=== PATIENT | female | born 1960 | race Caucasian/White ===

== ENCOUNTER 2018-02-17 08:12 | Emergency (ER) | payer BC, SELFPAY ==
[2018-02-17 08:21] VITALS: BP 131/75; PULSE 76; RESP 16; TEMP 36.5; O2SAT 100
--- NOTE | 2018-02-17 08:45 | ED.GENADUL ---
Disposition Clinical Impression: Left otitis media Disposition: HOME Condition: Good Instructions: Otitis Media (ED) Additional Instructions: Follow-up with Dr. Parson in clinic for recheck in 2-4 weeks time. Take Augmentin as prescribed. I do recommend live culture yogurt and/or probiotic as we discussed. Return for any acute concerns. Prescriptions: Amoxicillin 875/Clav. 125 [Augmentin 875-125 Tablet] 1 each PO BID 10 Days #20 tab Medical Decision Making - Medical Decision Making 57-year-old female with clinical history and exam consistent with ruptured acute left otitis media. She does also have fairly impressive cerumen buildup in both ears and will require Cerumenex once she is over this initial infection. I discussed this with her. Will treat with a course of Augmentin. She should follow-up with primary care within 2-4 weeks time for repeat exam and probable initiation of Cerumenex or ear irrigation. Stable for discharge home at this time History of Present Illness - General Chief complaint: EarProblem Stated complaint: EAR PAIN Time Seen by Provider: 02/17/18 08:45 Source: patient, RN notes reviewed Mode of arrival: ambulatory Limitations: no limitations - History of Present Illness Initial comments: 7-year-old female states that she had antecedent upper respiratory illness with mild cough and congestion over 4-5 days time while in [place], then flew home and during the flight had increased bilateral left greater than right ear pain. Over the past few days her respiratory symptoms have improved, she is how had 2 days of worsening, moderate, left ear pain that is nonradiating. She felt increased pressure and pain last night and then had relief with some yellow drainage. She does have a history of cerumen buildup in both ears previously. She does not have a history of ear pain such as that described - Related Data Amoxicillin 875/Clav. 125 [Augmentin 875-125 Tablet] 1 each PO BID 10 Days #20 tab 02/17/18 Aspirin [Aspir 81] 81 mg PO DAILY 02/17/18 Allergies Allergy/AdvReac Type Severity Reaction Status Date / Time No Known Allergies Allergy Unverified 02/17/18 08:25 Review of Systems Other: 8 systems reviewed, otherwise negative Past Medical History - Past Medical History See nursing notes General Exam - General Limitations: no limitations General appearance: alert, in no apparent distress - Head Head exam: Present: atraumatic, normocephalic - Eye Eye exam: Present: normal apperance, PERRL, EOMI - ENT ENT exam: Present: other (Right ear with cerumen impaction, left ear with cerumen and draining purulent fluid coming not appreciate fully the tympanic membrane.). Absent: TM's normal bilaterally - Neck Neck exam: Present: normal inspection. Absent: tenderness, lymphadenopathy - Respiratory Respiratory exam: Present: normal lung sounds bilaterally. Absent: respiratory distress - Cardiovascular Cardiovascular Exam: Present: regular rate, normal rhythm - GI/Abdominal GI/Abdominal exam: Present: soft. Absent: distended - Back Exam Back exam: Present: normal inspection - Neurological Exam Neurological exam: Present: alert, oriented X3 - Psychiatric Psychiatric exam: Present: normal affect, normal mood - Skin Skin exam: Present: warm, dry, intact Course Vital Signs - 24 hr 02/17/ 08:21 Temperature 36.5 C Pulse 76 Respiratory 16 Rate Blood Pressure 131/75 Pulse Oximetry 100
== END 2018-02-17 08:54 | disposition home or self-care (01) ==
LOC: ER 05-08 13:08
PROVIDERS: Emergency Provider Emergency Medicine; PCP Family Medicine
DX: H66.92 Otitis media, unspecified, left ear (principal); H61.23 Impacted cerumen, bilateral
CPT/HCPCS: 99283

== ENCOUNTER 2021-06-24 18:21 | Emergency (ER) | payer BC, SELFPAY ==
[2021-06-24 18:37] VITALS: BP 155/83; PULSE 103; RESP 16; TEMP 36.6; O2SAT 100
--- NOTE | 2021-06-24 18:57 | ED.GENADUL_ITS ---
Discharge Plan Disposition Patient Disposition: HOME Condition: Stable Discharge Details Clinical Impression: Rabies exposure Primary Care Provider: Atilio Houston ED Provider: Jonna Kinney Home Meds and New Rx's Prescriptions: Continued calcium-vitamin D3-vitamin K [Viactiv] 650 mg-12.5 mcg-40 mcg tablet,chewable 1 tab PO DAILY RF: 0 lorazepam 0.5 mg tablet 0.5 - 1 mg PO DAILY PRN (Reason: anxiety) Qty: 10 RF: 0 aspirin 81 mg Tablet,Chewable 81 mg PO DAILY RF: 0 Discharge Instructions Instructions: Rabies Vaccine (By injection), Rabies Immune Globulin (By injection), Rabies (ED) Additional Instructions: present to outpatient infusion clinic on June 27, and for postexposure vaccination series. Referrals: Atilio Houston MD [Primary Care Provider] - Medical Decision Making patient with unknown bat contact with bat in room where she was sleeping. qualifies for post exposure prophylaxis. given rabies vaccine and immune globulin HPI General Mode of arrival: ambulatory . Date/Time Provider Initiated Documentation: 06/24/21 18:24 . Limitations to Documentation: no limitations . Information obtained by: patient . HPI Narrative: patient reports that was woken this morning to find a bat in her room. it is unknown if she came in contact with it but reports a sore spot on her scalp and feels it may have struck her and that's why she woke up. she has been unable to locate the bat and was advised to present for postexposure vaccination for rabies. she has never received rabies vaccination Related Data Home Medications Medication Instructions Recorded Confirmed calcium 650 mg-vitamin D3 12.5 1 tab PO DAILY tab 06/04/18 06/24/21 mcg-vitamin K 40 mcg chewable tablet lorazepam 0.5 mg tablet 0.5 - 1 mg PO DAILY PRN #10 tab 01/19/21 06/24/21 aspirin 81 mg PO DAILY 06/24/21 06/24/21 Previous Rx's Medication Instructions Recorded lorazepam 0.5 mg tablet 0.5 - 1 mg PO DAILY PRN #10 tab 01/19/21 Allergies Allergy/AdvReac Type Severity Reaction Status Date / Time Influenza Virus Vaccines Allergy Intermediate Tingling Verified 06/24/21 18:41 in her back General Stated Complaint: AnimalBite RUBIO: 4 Review of Systems All systems reviewed & are unremarkable except as noted in HPI and below PFSH All Active Problems (Updated 06/24/21 @ 19:29 by Jonna Kinney NP) Rabies exposure (Acute) Left eye symptoms (Acute) Mucous polyp of cervix (Acute) Surgical History (Updated 04/25/18 @ 14:36 by [employer] [place]) Augmentation mammoplasty (~2002) Family History (Updated 06/18/19 @ 09:32 by León Arndt) Mother Stroke Father Diabetes Essential hypertension Heart disease Hyperlipidemia Sister No problems noted. Maternal Grandfather , AGE 81 Heart disease Paternal Grandfather , AGE 83 Heart disease Stroke Maternal Grandmother , AGE 99 Stroke Breast cancer Paternal Grandmother , AGE 73 Vulva cancer Sister No problems noted. Sister No problems noted. Sister No problems noted. Son Down syndrome Daughter No problems noted. Daughter No problems noted. Social History (Updated 10/29/20 @ 08:33 by Brooklyn Smith) Smoking/Tobacco Use Status: Never Second Hand Exposure: No Smoking risk assessment performed?: Yes Alcohol Intake: current Alcohol type: wine Drug use: Never Substance use type: does not use Counseling given: No Counseling provided: none Caregiver/Support person: No Household members: spouse and children Housing: house Communication Needs: None Do you need help understanding health information?: Rarely Pets and animals: No Sexually active: Yes Do you think of yourself as: straight/heterosexual Current gender identity: female What is your relationship status?: How often do you talk on the phone with friends or family?: three or more times per week How often do you get together with friends or relatives?: three or more times per week How often do you attend pentecostal or taoism services?: decline to answer Do you belong to any clubs or organized social groups?: no Panel score (0-1 are the most socially isolated patients): 2 What type of physical activity do you participate in: running and yoga Duration: 45-60 minutes/day Frequency: 5-6 times per week Brina/Baptism: No preference Special brina needs: No Seatbelt use: always Drive intox or ride w/intox 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 Do you feel safe in your relationship?: Yes Exam Const General: cooperative, healthy appearing and comfortable Nutritional Appearance: thin Orientation: alert, awake and oriented x3 HENMT Head: normal to inspection, normocephalic, atraumatic and other (no lesion noted) Mouth: oral mucosae normal Resp Effort & Inspection: normal respiratory effort Auscultation: clear to auscultation bilaterally Cardio Rate: regular rate Rhythm: regular rhythm Skin General skin exam: no rashes or lesions noted Neuro General: patient alert, patient awake and patient oriented x3 Course Vital Signs Vital signs: Vital Signs Temperature 36.6 C 06/24/21 18:37 Pulse 103 H 06/24/21 18:37 Respiratory Rate 16 06/24/21 18:37 Blood Pressure 155/83 H 06/24/21 18:37 Pulse Oximetry 100 06/24/21 18:37 Temperature 36.6 C 06/24/21 18:37 Temperature Source Skin 06/24/21 18:37 Pulse 103 H 06/24/21 18:37 Respiratory Rate 16 06/24/21 18:37 Respiratory Effort Non-Labored 06/24/21 18:37 Blood Pressure 155/83 H 06/24/21 18:37 Blood Pressure Position Sitting 06/24/21 18:37 Pulse Oximetry 100 06/24/21 18:37 Pain Level 1 06/24/21 18:37
[2021-06-24] MEDS: Rabies Immune Globulin 300 UNIT/ML VIAL 1133.98 UNIT IM (19:36)
== END 2021-06-24 19:45 | disposition home or self-care (01) ==
PROVIDERS: Emergency Provider Nurse Practitioner Acute Care; PCP Family Medicine
DX: Z20.3 Contact with and (suspected) exposure to rabies (principal)
CPT/HCPCS: 90471; 96372; 99284; 90675; 99283

== ENCOUNTER 2021-06-25 14:27 | Emergency (ER) | payer SELFPAY ==
[2021-06-25 15:30] VITALS: BP 132/89; PULSE 74; RESP 18; TEMP 36.8; O2SAT 99
--- NOTE | 2021-06-25 15:51 | ED.GENADUL_ITS ---
Discharge Plan Disposition Patient Disposition: HOME Condition: Stable Discharge Details Clinical Impression: Rabies exposure Primary Care Provider: Atilio Houston ED Provider: Beatriz Small Home Meds and New Rx's Prescriptions: Continued calcium-vitamin D3-vitamin K [Viactiv] 650 mg-12.5 mcg-40 mcg tablet,chewable 1 tab PO DAILY RF: 0 lorazepam 0.5 mg tablet 0.5 - 1 mg PO DAILY PRN (Reason: anxiety) Qty: 10 RF: 0 aspirin 81 mg Tablet,Chewable 81 mg PO DAILY RF: 0 Discharge Instructions Additional Instructions: please go to infusion clinic on day 3, 7, and 14 for rabies vaccine please return with flu like syndrome, signs of allergic reaction, or with new or worsening complaints Referrals: Atilio Houston MD [Primary Care Provider] - Discharge Data Discharge Date/Time-TO BE ENTERED AT DEPARTURE: 06/25/21 16:33 Medical Decision Making I discussed this patient with [facility] Annabel Hood and the [place] [facility] and your recommendation is to initiate half dose of repeat immunoglobulin, benefit outweighs risk and repeat rabies vaccination therefore outpatient rabies was reordered at day 037 and 14 Patient discharged home feeling well, asymptomatic, with stable vitals need to return in 3 days for repeat rabies vaccination, immunization order sheet was faxed to the infusion center HPI General Mode of arrival: ambulatory . Date/Time Provider Initiated Documentation: 06/25/21 14:33 . Limitations to Documentation: no limitations . Information obtained by: patient . HPI Narrative: This 60-year-old female presents with report of waking up with at in the room 48 hours ago. She presented to the emergency room and received the rabies immunoglobulin and vaccine. She reportedly received these in her glucose and after consulting with rabies hotline and CBC it is recommended that these be administered in any intramuscular location of 5 chronically. Reportedly concerns but they are neutralized and area secondary to large size of the muscle reportedly. Patient denies any current fever, chills or flulike syndrome. Related Data Home Medications Medication Instructions Recorded Confirmed calcium 650 mg-vitamin D3 12.5 1 tab PO DAILY tab 06/04/18 06/25/21 mcg-vitamin K 40 mcg chewable tablet lorazepam 0.5 mg tablet 0.5 - 1 mg PO DAILY PRN #10 tab 07/13/21 12/17/21 aspirin 81 mg PO DAILY 06/24/21 06/25/21 Previous Rx's Medication Instructions Recorded lorazepam 0.5 mg tablet 0.5 - 1 mg PO DAILY PRN #10 tab 01/19/21 Allergies Allergy/AdvReac Type Severity Reaction Status Date / Time Influenza Virus Vaccines Allergy Intermediate Tingling Verified 06/25/21 15:32 in her back General Stated Complaint: Recheck RUBIO: 4 Review of Systems All systems reviewed & are unremarkable except as noted in HPI and below PFSH All Active Problems (Updated 06/25/21 @ 15:58 by KAYE Haynes) Rabies exposure (Acute) Left eye symptoms (Acute) Mucous polyp of cervix (Acute) Surgical History (Updated 04/25/18 @ 14:36 by [facility] [place]) Augmentation mammoplasty (~2002) Family History (Updated 06/18/19 @ 09:32 by León Arndt) Mother Stroke Father Diabetes Essential hypertension Heart disease Hyperlipidemia Sister No problems noted. Maternal Grandfather , AGE 81 Heart disease Paternal Grandfather , AGE 83 Heart disease Stroke Maternal Grandmother , AGE 99 Stroke Breast cancer Paternal Grandmother , AGE 73 Vulva cancer Sister No problems noted. Sister No problems noted. Sister No problems noted. Son Down syndrome Daughter No problems noted. Daughter No problems noted. Social History (Updated 10/29/20 @ 08:33 by Brooklyn Smith) Smoking/Tobacco Use Status: Never Second Hand Exposure: No Smoking risk assessment performed?: Yes Alcohol Intake: current Alcohol type: wine Drug use: Never Substance use type: does not use Counseling given: No Counseling provided: none Caregiver/Support person: No Household members: spouse and children Housing: house Communication Needs: None Do you need help understanding health information?: Rarely Pets and animals: No Sexually active: Yes Do you think of yourself as: straight/heterosexual Current gender identity: female What is your relationship status?: How often do you talk on the phone with friends or family?: three or more times per week How often do you get together with friends or relatives?: three or more times per week How often do you attend restorationist or zoroastrian services?: decline to answer Do you belong to any clubs or organized social groups?: no Panel score (0-1 are the most socially isolated patients): 2 What type of physical activity do you participate in: running and yoga Duration: 45-60 minutes/day Frequency: 5-6 times per week Brina/Restoration: No preference Special brina needs: No Seatbelt use: always Drive intox or ride w/intox 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 Do you feel safe in your relationship?: Yes Exam Const General: cooperative and no acute distress Neuro General: patient alert Course Vital Signs Vital signs: Vital Signs Temperature 36.8 C 06/25/21 15:30 Pulse 74 06/25/21 15:30 Respiratory Rate 18 06/25/21 15:30 Blood Pressure 132/89 06/25/21 15:30 Pulse Oximetry 99 06/25/21 15:30 Temperature 36.8 C 06/25/21 15:30 Temperature Source Skin 06/25/21 15:30 Pulse 74 06/25/21 15:30 Respiratory Rate 18 06/25/21 15:30 Respiratory Effort Non-Labored 06/25/21 15:32 Blood Pressure 132/89 06/25/21 15:30 Pulse Oximetry 99 06/25/21 15:30 Pain Level 1 06/25/21 15:30
[2021-06-25] MEDS: Rabies Immune Globulin 300 UNIT/ML VIAL 566.98 UNIT IM (16:17)
--- NOTE | 2021-06-28 08:58 | NUR.NOTE ---
Nursing Note: Faxed to Infusion Room the new set of Rabies Vaccine Orders done today by Niki Ma NP. Brooklyn Marc
== END 2021-06-25 16:33 | disposition home or self-care (01) ==
PROVIDERS: Emergency Provider Physician Assistant; PCP Family Medicine
DX: Z20.3 Contact with and (suspected) exposure to rabies (principal)
CPT/HCPCS: 90675

== ENCOUNTER 2021-07-09 01:45 | Outpatient (RCR) | payer BC, SELFPAY | END 2021-07-09 23:59 | disposition home or self-care (01) | LOC: INF 01:45 | PROVIDERS: PCP Family Medicine; Visit Provider Nurse Practitioner Acute Care | DX: Z20.3 Contact with and (suspected) exposure to rabies (principal) | CPT/HCPCS: 90471; 96372; 90675 ==

== ENCOUNTER 2021-11-02 05:10 | Outpatient (CLI) | payer BC, SELFPAY ==
[2021-11-02 12:42] LABS: HCT 43.7 % (36.0-46.0); HGB 14.1 g/dL (11.2-15.7); MCH 29.3 pg (27.0-33.0); MCHC 32.3 % (32.0-36.0); MCV 90.7 fL (80-95); MPV 10.6 fL (8.0-11.0); Platelet Count 217 10^3/uL (130-400); RBC 4.82 10^6/uL (3.93-5.22); RDW 12.9 % (11.7-14.6); RDW-SD 42.8 fL; WBC 4.67 10^3/uL (4.4-10.8)
[2021-11-02 13:20] LABS: ALT 17 U/L (14-59); AST 22 U/L (15-37); Albumin 4.4 g/dL (3.4-5.0); Alkaline Phosphatase 51 U/L (46-116); Anion Gap 8.3 mmol/L (3-11); BUN 20 mg/dL (7-18); Bilirubin, Total 0.6 mg/dL (0.2-1.0); CO2 27.7 mmol/L (21.0-32.0); CREATININE 0.8 mg/dL (0.55-1.02); Calcium 9.3 mg/dL (8.5-10.1); Calculated LDL 138 mg/dL (<100); Chloride 104 mmol/L (98-107); Cholesterol 236 mg/dL (<200); Glucose 94 mg/dL (74-106); HDL Cholesterol 86 mg/dL (40-60); Sodium 140 mmol/L (136-145); Total Protein 7.4 g/dL (6.4-8.2); Triglyceride 64 mg/dL (<150)
[2021-11-03 10:45] LABS: HIV-1/2 Ag & Ab Screen Negative (Negative)
[2021-11-03 10:57] LABS: Hepatitis C Ab w Rflx HCV PCR Negative (Negative)
== END 2021-11-02 05:11 | disposition home or self-care (01) ==
LOC: LOS 05:11
PROVIDERS: PCP Family Medicine; Visit Provider Family Medicine
DX: I10 Essential (primary) hypertension (principal); Z13.6 Encounter for screening for cardiovascular disorders; Z11.59 Encounter for screening for other viral diseases; Z11.4 Encounter for screening for human immunodeficiency virus [HIV]
CPT/HCPCS: 36415; 80053; 80061; 85027; 86803; 87389

== ENCOUNTER 2023-05-16 09:53 | Outpatient (REF) | payer BC, SELFPAY ==
--- NOTE | 2023-05-16 09:30 | PAPFT_PTH ---
PATIENT: Alisa Wong LOC: TRA U#:[id number] AGE/SX: 62/F ROOM: RE05/16/[address]: Mary Padilla : 1960 BED: DIS: 05/16/2023 SPEC #: [id number] RECD: 05/16/23 13:01 STATUS: TIANALizz REShaun #: [id number] ELYSIA: 05/16/23 09:[address]: Mary Padilla DEPT: [facility] Cytology RECD BY: Beatriz Reyes ENTERED: 05/16/23 13:01 SP TYPE: PAPFT OTHR DR: Renee Mendoza Tissues: 1 - CX/ENDOCX FOR PAP SMEARS Procedures: PAP THIN PREP/UVM Screening HPV DNA PROBE Comments: [id number]
== END 2023-05-16 09:54 | disposition home or self-care (01) ==
LOC: LBN 09:53
PROVIDERS: PCP Family Medicine; Visit Provider Obstetrics & Gynecology Gynecology
DX: Z12.4 Encounter for screening for malignant neoplasm of cervix (principal)
CPT/HCPCS: 88142; 87624